=== PATIENT | female | born 1990 | race Caucasian/White ===

== ENCOUNTER → 2023-10-17 14:14 | Outpatient (REF) | payer BC, SELFPAY | LOC: WDC 14:14 | PROVIDERS: ATTENDING PHYSICIAN Surgery; FAMILY PHYSICIAN Family Medicine | DX: R92.8 Other abnormal and inconclusive findings on diagnostic imaging of breast (principal) | CPT/HCPCS: 76642 ==

== ENCOUNTER → 2024-04-24 09:40 | Outpatient (REF) | payer BC, SELFPAY | LOC: MRI 3T 09:40 | PROVIDERS: ATTENDING PHYSICIAN Surgery; FAMILY PHYSICIAN Family Medicine | DX: R92.8 Other abnormal and inconclusive findings on diagnostic imaging of breast (principal) | CPT/HCPCS: 77049; A9585 ==

== ENCOUNTER → 2024-07-02 12:41 | Outpatient (REF) | payer BC, SELFPAY | LOC: WDC 12:41 | PROVIDERS: ATTENDING PHYSICIAN Surgery | DX: Z15.01 Genetic susceptibility to malignant neoplasm of breast (principal); R92.8 Other abnormal and inconclusive findings on diagnostic imaging of breast | CPT/HCPCS: 77063; 77067 ==

== ENCOUNTER → 2024-07-10 09:14 | Outpatient (REF) | payer BC, SELFPAY | LOC: WDC 09:14 | PROVIDERS: ATTENDING PHYSICIAN Surgery | DX: R92.8 Other abnormal and inconclusive findings on diagnostic imaging of breast (principal) | CPT/HCPCS: 76642 ==

== ENCOUNTER → 2025-07-08 12:17 | Outpatient (REF) | payer BC, SELFPAY | LOC: MRI 3T 12:17 | PROVIDERS: ATTENDING PHYSICIAN Nurse Practitioner Adult Health; FAMILY PHYSICIAN Family Medicine | DX: Z15.01 Genetic susceptibility to malignant neoplasm of breast (principal); R92.2 Inconclusive mammogram | CPT/HCPCS: 77049; A9585 ==